=== PATIENT | female | born 1945 | race Caucasian/White ===

== ENCOUNTER 2018-09-03 19:34 | Emergency (ER) | payer MEDICARE ==
[~2018-09-03] VITALS: Ht 162.6 cm; Wt 91.2 kg
--- OUTSIDE RECORDS SUMMARY | 2018-09-03 19:37 | XMS REPORT ---
Author Author [facility] Address Unknown Phone Unavailable Care Team Providers Care Band Sawmill Operator Name Role Phone HU MCDONALD Unavailable Unavailable Problems This patient has no known problems. Allergies, Adverse Reactions, Alerts This patient has no known allergies or adverse reactions. Medications This patient has no known medications. Results Test Description Test Time Test Comments Text Results Atomic Results Result Comments POCT-GLUCOSE METER 2017-07-26 09:34:00 POC-GLUCOSE METER (BEAKER) (test jjvt=3699) 203 mg/dL 70-110 TESTED AT [facility] [address] [facility] [address] BASIC METABOLIC [id number] 06:38:00* Test Item Value Reference Range Comments SODIUM (BEAKER) (test txsm=982) 136 meq/L 136-145 POTASSIUM (BEAKER) (test gmco=215) 3.8 meq/L 3.5-5.1 CHLORIDE (BEAKER) (test pbsx=759) 102 meq/L 98-107 CO2 (BEAKER) (test rkbo=735) 27 meq/L 22-29 BLOOD UREA NITROGEN (BEAKER) (test pnde=471) 7 mg/dL 7-21 CREATININE (BEAKER) (test udox=777) 0.72 mg/dL 0.57-1.25 GLUCOSE RANDOM (BEAKER) (test wpsk=092) 195 mg/dL 70-105 CALCIUM (BEAKER) (test ijal=067) 8.5 mg/dL 8.4-10.2 EGFR (BEAKER) (test qbjh=9680) 80 mL/min/1.73 sq m ESTIMATED GFR IS NOT ACCURATE CREATININE CLEARANCE IN PREDICTING GLOMERULAR FILTRATION RATE. ESTIMATED GFR IS NOT APPLICABLE FOR DIALYSIS PATIENTS. CBC W/PLT COUNT & AUTO [id number] 05:32:00* Test Item Value Reference Range Comments WHITE BLOOD CELL COUNT (BEAKER) (test wsst=775) 10.1 K/ L 3.5-10.5 RED BLOOD CELL COUNT (BEAKER) (test qkkx=297) 3.77 M/ L 3.93-5.22 HEMOGLOBIN (BEAKER) (test swus=452) 10.8 GM/DL 11.2-15.7 HEMATOCRIT (BEAKER) (test rgyi=725) 33.5 % 34.1-44.9 MEAN CORPUSCULAR VOLUME (BEAKER) (test yyfu=743) 88.9 fL 79.4-94.8 MEAN CORPUSCULAR HEMOGLOBIN (BEAKER) (test eknj=415) 28.6 pg 25.6-32.2 MEAN CORPUSCULAR HEMOGLOBIN CONC (BEAKER) (test leox=388) 32.2 GM/DL 32.2-35.5 RED CELL DISTRIBUTION WIDTH (BEAKER) (test jqfl=034) 15.8 % 11.7-14.4 PLATELET COUNT (BEAKER) (test wuyk=546) 321 K/CU MM 150-450 MEAN PLATELET VOLUME (BEAKER) (test shhd=433) 9.3 fL 9.4-12.3 NUCLEATED RED BLOOD CELLS (BEAKER) (test vxnd=455) 0 /100 WBC 0-0 NEUTROPHILS RELATIVE PERCENT (BEAKER) (test ytxu=977) 72 % LYMPHOCYTES RELATIVE PERCENT (BEAKER) (test gnek=225) 17 % MONOCYTES RELATIVE PERCENT (BEAKER) (test flrx=816) 9 % EOSINOPHILS RELATIVE PERCENT (BEAKER) (test hfbz=750) 1 % BASOPHILS RELATIVE PERCENT (BEAKER) (test xhfm=847) 0 % NEUTROPHILS ABSOLUTE COUNT (BEAKER) (test jpvv=447) 7.33 K/ L 1.56-6.13 LYMPHOCYTES ABSOLUTE COUNT (BEAKER) (test gidx=525) 1.71 K/ L 1.18-3.74 MONOCYTES ABSOLUTE COUNT (BEAKER) (test smqb=068) 0.89 K/ L 0.24-0.36 EOSINOPHILS ABSOLUTE COUNT (BEAKER) (test lndw=473) 0.11 K/ L 0.04-0.36 BASOPHILS ABSOLUTE COUNT (BEAKER) (test eslk=493) 0.04 K/ L 0.01-0.08 IMMATURE GRANULOCYTES-RELATIVE PERCENT (BEAKER) (test xamh=5194) 0 % 0-1 POCT-GLUCOSE [id number] 22:11:00* Test Item Value Reference Range Comments POC-GLUCOSE METER (BEAKER) (test kgmz=7624) 122 mg/dL 70-110 TESTED AT [place] [address] [id number] 17:36:00* Test Item Value Reference Range Comments ACTIVATED CLOTTING TIME (BEAKER) (test dfgp=387) 131 sec TESTED AT [place] [address] [id number] 16:36:00* Test Item Value Reference Range Comments ACTIVATED CLOTTING TIME (BEAKER) (test osue=855) 147 sec TESTED AT [place] [address] [id number] 15:36:00* Test Item Value Reference Range Comments ACTIVATED CLOTTING TIME (BEAKER) (test qvti=354) 158 sec TESTED AT [place] [address] [id number] 13:19:00* Test Item Value Reference Range Comments ACTIVATED CLOTTING TIME (BEAKER) (test binx=973) 219 sec TESTED AT [place] [address] POCT-GLUCOSE [id number] 08:39:00* Test Item Value Reference Range Comments POC-GLUCOSE METER (BEAKER) (test ohsk=6147) 166 mg/dL 70-110 TESTED AT [place] [address]
--- OUTSIDE RECORDS SUMMARY | 2018-09-03 19:37 | XMS REPORT | Clinical Summary ---
Author Author [facility] Address Unknown Phone Unavailable Care Team Providers Care Terminal Superintendent Name Role Phone Azael Pruett MD PCP Allergies Comments Active Allergy Reactions Severity Noted Date Codeine Nausea And 07/25/2017 Vomiting Etodolac Shortness Of High 07/22/2017 Breath Tizanidine Hives, Nausea 07/25/2017 And Vomiting Medications End Date Status Medication Sig Dispensed Refills Start Date Active insulin glargine (LANTUS) Inject 50 0 100 unit/mL injection Units subcutaneousl y nightly Use as directed . Active amitriptyline (ELAVIL) 50 Take 50 mg by 0 MG tablet mouth nightly. Active amLODIPine (NORVASC) 5 MG Take 5 mg by 0 tablet mouth daily. Active atorvastatin (LIPITOR) 40 Take 40 mg by 0 MG tablet mouth daily. Active buPROPion (WELLBUTRIN SR) Take 150 mg 0 150 MG 12 hr tablet by mouth 2 (two) times daily. Active carvedilol (COREG) 25 MG Take 25 mg by 0 tablet mouth 2 (two) times daily with breakfast and dinner. Active clopidogrel (PLAVIX) 75 Take 75 mg by 0 mg tablet mouth daily. Active divalproex (DEPAKOTE) 250 Take 250 mg 0 MG EC tablet by mouth once at bedtime Take 2 tabs at bedtime . Active DULoxetine (CYMBALTA) 60 Take 60 mg by 0 MG capsule mouth 2 (two) times daily. Active insulin aspart (NOVOLOG) Inject 15 0 100 unit/mL InPn Units subcutaneousl y 2 (two) times daily before meals. Active ranitidine (ZANTAC) 150 Take 150 mg 0 MG tablet by mouth 2 (two) times daily. Active umeclidinium (INCRUSE Inhale 1 puff 0 ELLIPTA) 62.5 by mouth via mcg/actuation DsDv powder inhaler for inhalation daily. Active ALBUTEROL SULFATE (PROAIR Inhale 1 puff 0 HFA INHL) by mouth via inhaler every 4 (four) hours as needed. Active fluticasone (FLONASE) 50 1 spray by 0 mcg/actuation nasal spray Nasal route 2 (two) times daily. Active fluticasone-salmeterol Inhale 2 0 (ADVAIR HFA) 115-21 puffs by mcg/actuation inhaler mouth via inhaler 2 (two) times daily. Active furosemide (LASIX) 20 MG Take 20 mg by 0 tablet mouth daily. Active HYDROCODONE/CHLORPHEN Take 5 mLs by 0 P-STIREX (TUSSIONEX mouth every PENNKINETIC ER ORAL) 12 (twelve) hours As needed for cough . Active HYDROcodone-acetaminophen Take 1 tablet 0 (NORCO 5-325) 5-325 mg by mouth per tablet every 6 (six) hours as needed for Pain. Active LORazepam (ATIVAN) 0.5 MG Take 0.5 mg 0 tablet by mouth 3 (three) times daily as needed for Anxiety. Active sodium,potassium,mag Take by 0 sulfates 17.5-3.13-1.6 mouth. 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 Last Filed Vital Signs Not on file Plan of Treatment Not on file Implants Device Identifier Shelf Expiration Date Model / Serial / Lot Implanted Type Area Manufactur er 06/01/2019 [id number] / / [id number] Express Ld Iliac/Biliary Stents-Per Left: Iliac [place] Implanted: Qty: 1 on 07/25/2017 by Shalini Sharp MD 03/26/2019 [id number] / / [id number] Express Ld Iliac/Biliary Stents-Per Right: Iliac [place] Implanted: Qty: 1 on 07/25/2017 by Shalini Sharp MD Results Not on fileafter 09/02/2017 Insurance Payer Benefit Subscriber ID Type Phone Address Plan / Group [employer] xxxxxxxxx [facility] Contracted Advance Directives For more information, please contact: [address] [address] Date Inactivated Comments Code Status Date Activated 07/26/2017 5:29 PM Full Code 07/25/2017 8:01 AM This code status was determined by: Patient
== END 2018-09-03 20:28 | disposition home or self-care (01) ==
LOC: FSED 19:34
DX: L03.116 Cellulitis of left lower limb (principal); L03.115 Cellulitis of right lower limb; F17.210 Nicotine dependence, cigarettes, uncomplicated
CPT/HCPCS: 99282